=== PATIENT | male | born 1990 | race Caucasian/White ===

== ENCOUNTER 2020-01-11 16:13 | Emergency (ER) | payer SELFPAY ==
[2020-01-11 17:03] VITALS: BP 127/81; PULSE 82; RESP 19; TEMP 36.6; O2SAT 98; BMI 24.4
--- NOTE | 2020-01-11 17:14 | HMH.EDUTC ---
[facility] [place] Disposition Clinical Impression: Exposure to STD Disposition: Home, Self-Care Condition on Discharge: Good Instructions: Chlamydia, Chlamydia: The Silent STD, DI for Chlamydia Additional Instructions: Make sure to follow up in the next 5-7 days for your test results *No sex for at least 7 days to give antibiotics time to clear the infection Return if needed Straight to ER if any life threatening symptoms Follow up with Family doctor if no improvement or any worsening of symptoms Referrals: PCP,No [Primary Care Provider] - As needed Time of Disposition: 17:27 Medical Decision Making - Ben Inquiry Pt receiving controlled substance: No Ben was queried for this patient: No Vital Signs: 01/11/20 17:03 Temperature 97.9 F Temperature Source Oral Pulse Rate [Right Brachial] 82 Respiratory Rate 19 Blood Pressure [Right Arm] 127/81 Blood Pressure Mean [Right Arm] 96 Blood Pressure Source [Right Arm] Automatic Cuff Blood Pressure Position [Right Arm] Sitting 02 Sat by Pulse Oximetry 98 Oxygen Delivery Method Room Air [facility] [place] HPI - General Stated complaint: possible uti Time Seen by Provider: 01/11/20 17:15 Mode of Arrival: Ambulatory Source of Information: Patient Limitations: No Limitations Description of Symptoms (Recalled from Triage Doc. by RN): PATIENT WANTING TO BE TESTED FOR STDs HEENT Symptoms (Recalled from RN notes): No Resp Symptoms (Recalled from RN notes): No Skin Symptoms (Recalled from RN notes): No MS Symptoms (Recalled from RN notes): No Functional Status (Recalled from RN notes): WNL - History of Present Illness Provider Complaint: Patient states that he recently had sexual intercourse multiple times on seperate occasions unprotected with female that called him earlier today and said she had clamydia and recommended that he come in and get tested States that he wants to get tested and go ahead and get treated - Related Data Home Medications Medication Instructions Recorded Confirmed No Known Home Medications 01/11/20 01/11/20 Allergies Allergy/AdvReac Type Severity Reaction Status Date / Time amoxicillin [AMOXICILLIN] Allergy Unknown Verified 02/07/18 21:11 Penicillins [PENICILLINS] Allergy Unknown Verified 02/07/18 21:11 ampicillin Allergy Verified 02/07/18 21:11 - Worker's Comp Is this a Worker's Comp case?: No [facility] History - Hepatitis A Screen Drug use history?: No High risk sexual behaviors?: No History of sexually transmitted infection?: No Currently employed?: No Childcare worker?: No Do you have indoor plumbing?: Yes Do you have electricity?: Yes Attestation statement:: This patient has been screened for Hepatitis A risk factors. I have reviewed the patient's past medical history: Yes Medical History: Denies:: Diabetes Mellitus Type 1, Diabetes Mellitus Type 2, Hypertension Other Surgeries: Yes: Other (Hypospadias correction) - Social History Smoking Status: Never smoker Alcohol Intake: never Occupational Status: other Housing: house ROS Obtained: Yes All systems reviewed & no additional complaints, Yes Systems reviewed as appropriate & no additional complaints - Constitutional Constitutional: Reports system reviewed and no additional complaints, except as docu - Cardiovascular Cardiovascular: Reports system reviewed and no additional complaints, except as docu - Respiratory Respiratory: Yes system reviewed and no additional complaints, except as docu - Gastrointestinal Gastrointestingal: Reports: system reviewed and no additional complaints, except as docu - Allergic/Immunologic Comments: Recently expose to Chlamydia Physical Exam - General General appearance: alert, in no apparent distress - ENT ENT exam: Present: normal exam, normal oropharynx, mucous membranes moist, TM's normal bilaterally, normal external ear exam - Respiratory Respiratory exam: Present: normal lung sounds bilaterally. Absent: respiratory dis
[2020-01-11 17:35] VITALS: BP 127/81; PULSE 82; RESP 19; TEMP 36.6; O2SAT 98
[2020-01-16 08:42] LABS: Neisseria gonorrhoeae, NAA Negative (Negative)
== END 2020-01-11 17:37 | disposition home or self-care (01) ==
PROVIDERS: Emergency Provider Nurse Practitioner
DX: Z20.2 Contact with and (suspected) exposure to infections with a predominantly sexual mode of transmission (principal); Z88.0 Allergy status to penicillin
CPT/HCPCS: 87491; 87591; 99201

== ENCOUNTER 2020-03-29 17:56 | Emergency (ER) | payer OTHER, SELFPAY ==
[2020-03-29 18:00] VITALS: BP 141/91; PULSE 78; RESP 18; TEMP 37; O2SAT 99; BMI 24.4
--- NOTE | 2020-03-29 18:10 | HMH.EDUTC ---
[facility] [place] Disposition Clinical Impression: Exposure to COVID-19 virus Disposition: Home, Self-Care Condition on Discharge: Good Instructions: Preventing the Spread of Coronavirus Discharge Instructions Additional Instructions: self isolate until test results are known to be neg follow up with pcp if symptoms worsen or do not improve increase fluids tylenol or motrin as needed Referrals: PCP,No [Primary Care Provider] - Time of Disposition: 18:12 Medical Decision Making - Ben Inquiry Pt receiving controlled substance: No Vital Signs: 03/29/20 18:00 Temperature 98.6 F Temperature Source Oral Pulse Rate [Right Brachial] 78 Respiratory Rate 18 Blood Pressure [Right Arm] 141/91 H Blood Pressure Mean [Right Arm] 107 Blood Pressure Source [Right Arm] Automatic Cuff Blood Pressure Position [Right Arm] Sitting 02 Sat by Pulse Oximetry 99 Oxygen Delivery Method Room Air Orders (Tests/Meds): ORDERS Category Date Time Status Covid-19 Nasal PCR Sendout [facility] 03/29/20 17:58 Ordered [facility] [place] HPI - General Chief complaint: Urgent Treatment Center Stated complaint: COVID Testing Time Seen by Provider: 03/29/20 18:10 Mode of Arrival: Ambulatory Source of Information: Patient Limitations: No Limitations Description of Symptoms (Recalled from Triage Doc. by RN): PATIENT REQUESTING COVID TEST D/T EXPOSURE; DENIES SYMPTOMS HEENT Symptoms (Recalled from RN notes): No Resp Symptoms (Recalled from RN notes): No Skin Symptoms (Recalled from RN notes): No MS Symptoms (Recalled from RN notes): No Functional Status (Recalled from RN notes): WNL - History of Present Illness Provider Complaint: 29 yr old male presents for covid testing. pt states he was exposed and his work wants him to have test. pt states no symptoms - Related Data Previous Rx's Medication Instructions Recorded Doxycycline Hyclate [Doxycycline 100 mg PO Q12 7 Days #14 cap 01/18/20 100mg Capsule] Allergies Allergy/AdvReac Type Severity Reaction Status Date / Time amoxicillin [AMOXICILLIN] Allergy Unknown Verified 02/07/18 21:11 Penicillins [PENICILLINS] Allergy Unknown Verified 02/07/18 21:11 ampicillin Allergy Verified 02/07/18 21:11 - Worker's Comp Is this a Worker's Comp case?: No [facility] History - Hepatitis A Screen Drug use history?: No High risk sexual behaviors?: No History of sexually transmitted infection?: No Currently employed?: No Childcare worker?: No Do you have indoor plumbing?: Yes Do you have electricity?: Yes Attestation statement:: This patient has been screened for Hepatitis A risk factors. I have reviewed the patient's past medical history: Yes Medical History: Denies:: Diabetes Mellitus Type 1, Diabetes Mellitus Type 2, Hypertension Other Surgeries: Yes: Other (Hypospadias correction) - Social History Smoking Status: Never smoker Alcohol Intake: never Occupational Status: other Housing: house ROS Obtained: Yes Systems reviewed as appropriate & no additional complaints - Constitutional Constitutional: Reports system reviewed and no additional complaints, except as docu, Denies body ache - Eyes Eyes: Reports system reviewed and no additional complaints, except as docu, Denies blurry vision - ENT Ears, Nose, Mouth, and Throat: Reports system reviewed and no additional complaints, except as docu, Denies headache(s) - Cardiovascular Cardiovascular: Reports system reviewed and no additional complaints, except as docu, Denies chest pain at rest - Respiratory Respiratory: Yes system reviewed and no additional complaints, except as docu, No change in phlegm color - Gastrointestinal Gastrointestingal: Reports: system reviewed and no additional complaints, except as docu. Denies: belching, nausea - Genitourinary Male Genitourinary: Reports system reviewed and no additional complaints, except as docu - Musculoskeletal Musculoskeletal: Reports system reviewed and no additional com
[2020-03-29 18:14] VITALS: BP 141/91; PULSE 78; RESP 18; TEMP 37; O2SAT 99
[2020-03-31 10:18] LABS: Covid-19 Nasal PCR Sendout UK Not Detected
== END 2020-03-29 18:15 | disposition home or self-care (01) ==
PROVIDERS: Emergency Provider Nurse Practitioner Family
DX: Z20.828 Contact with and (suspected) exposure to other viral communicable diseases (principal); Z88.0 Allergy status to penicillin
CPT/HCPCS: 99201; U0003

== ENCOUNTER 2020-12-18 18:08 | Emergency (ER) | payer OTHER, SELFPAY ==
[2020-12-18 18:08] VITALS: BP 128/74; PULSE 76; RESP 19; TEMP 36.8; O2SAT 100; BMI 24.4
--- NOTE | 2020-12-18 19:14 | HMH.EDUTC ---
[facility] [place] Clinical Impression: Encounter for laboratory testing for COVID-19 virus Disposition: Home, Self-Care Condition on Discharge: Good Instructions: DI for COVID-19 (Suspected or Confirmed ), Coronavirus Disease 2019, Preventing the Spread of Coronavirus Discharge Instructions Additional Instructions: *Monitor Temp, Over the counter Motrin or Tylenol as directed/as needed Tylenol every 4 hours and Motrin every 6 hours (as long as your family doctor has told you that you can take it) for fever or pain. and straight to ER if unable to lower temp less than 101.0 after medication given Follow up IMMEDIATELY for new or worsening symptoms or no Noticeable improvement over the next 48-72 hours. 911 for difficulty breathing or swallowing You were tested for today for COVID19 your test result should be back in the next 24-48 hours, you may call to the [facility] to see if your test results are back in the next 48 hours [phone] [facility] hours are 9am-9pm You was given a handout with instructions for Self Quarantine and Self isolation for while you wait on test results and what to do if they are positive If you are positive the Health Dept will be contacting you also Make sure to take your Vitamins Vit. C Vit D and Zinc if you can take them Referrals: Provider,Referral, MD [Primary Care Provider] - As needed Time of Disposition: 19:16 Medical Decision Making - Ben Inquiry Pt receiving controlled substance: No Ben was queried for this patient: No Vital Signs: 12/18/20 18:08 Temperature 98.2 F Temperature Source Oral Pulse Rate [Left Radial] 76 Respiratory Rate 19 Blood Pressure [Right Arm] 128/74 Blood Pressure Mean [Right Arm] 92 Blood Pressure Source [Right Arm] Automatic Cuff Blood Pressure Position [Right Arm] Sitting 02 Sat by Pulse Oximetry 100 Oxygen Delivery Method Room Air Orders (Tests/Meds): ORDERS Category Date Time Status Covid-19 Nasal PCR ([facility]) Routine Lab 12/18/20 19:01 Ordered [facility] [place] - General Stated complaint: covid test Time Seen by Provider: 12/18/20 19:14 Mode of Arrival: Ambulatory Source of Information: Patient Limitations: No Limitations Description of Symptoms (Recalled from Triage Doc. 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: No High risk sexual behaviors?: No History of sexually transmitted infection?: No Currently employed?: No Childcare worker?: No Do you have indoor plumbing?: Yes Do you have electricity?: Yes Attestation statement:: This patient has been screened for Hepatitis A risk factors. I have reviewed the patient's past medical history: Yes Medical History: Denies:: Diabetes Mellitus Type 1, Diabetes Mellitus Type 2, Hypertension Other Surgeries: Yes: Other (Hypospadias correction) - Social History Smoking Status: Never smoker Alcohol Intake: never Occupational Status: other Housing: house ROS Obtained: Yes All systems reviewed & no additional complaints, Yes System
[2020-12-18 19:23] VITALS: BP 128/74; PULSE 76; RESP 19; TEMP 36.8; O2SAT 100
== END 2020-12-18 19:25 | disposition home or self-care (01) ==
PROVIDERS: Emergency Provider Nurse Practitioner
DX: Z20.822 Contact with and (suspected) exposure to COVID-19 (principal)
CPT/HCPCS: 99202; G0463; U0003

== ENCOUNTER 2023-12-17 17:53 | Emergency (ER) | payer SELFPAY ==
[2023-12-17 18:00] VITALS: BP 127/76; PULSE 58; RESP 19; TEMP 36.7; O2SAT 100; BMI 25.0
[2023-12-17] MEDS: TET/DIPHTH/PERT-ADULT 0.5ML SYRINGE 0.5 ML IM (18:13)
--- NOTE | 2023-12-17 18:19 | ED_ITS ---
Discharge Plan Disposition Patient Disposition: Home, Self-Care Condition: Good Prescriptions Prescriptions: New doxycycline hyclate 100 mg capsule 100 mg PO BID Qty: 20 0RF mupirocin 2 % ointment 1 applic topical BID 10 Days Qty: 15 0RF No Action doxycycline hyclate 100 MG capsule 100 mg PO Q12 7 Days Qty: 14 0RF Referrals Follow up/Referrals: Provider,Referral, MD [Primary Care Provider] - See instructions Activity Restrictions/Add. Instructions Additional Instructions/Restrictions: clean area twice a day apply cream monitor for s/s of infection return if symptoms worsen or no improvement Clinical Impressions Clinical Impression: Puncture wound of foot Qualifiers: Encounter type: initial encounter Laterality: left Qualified Code(s): S91.332A - Puncture wound without foreign body, left foot, initial encounter Instructions Patient Instructions: DI for Puncture Wound Print Language Print Language: Sammarinese Discharge ED Provider: Vesta ([facility]Jam [facility] [place] General Stated complaint: AO08/10 Stepped on nail LT foot Mode of Arrival: Ambulatory Source of Information: Patient Limitations: No Limitations Time Seen by Provider: 12/17/23 18:20 Description of Symptoms (Recalled from Triage Doc. by RN): PATIENT STATES HE STEPPED ON A KAYA NAIL TODAY, NEEDS TDAP HEENT Symptoms (Recalled from RN notes): No Resp Symptoms (Recalled from RN notes): No Skin Symptoms (Recalled from RN notes): Yes MS Symptoms (Recalled from RN notes): No Functional Status (Recalled from RN notes): WNL History of Present Illness Provider Complaint: 33 yr old male stepped on nail Related Data Previous Rx's ?Medication ?Instructions ?Recorded doxycycline hyclate 100 mg capsule 100 mg PO Q12 7 days #14 caps 01/18/20 doxycycline hyclate 100 mg capsule 100 mg PO BID #20 caps 12/17/23 mupirocin 2 % topical ointment 1 applic topical BID 10 days #15 12/17/23 grams Allergies Allergy/AdvReac Type Severity Reaction Status Date / Time amoxicillin [AMOXICILLIN] Allergy Unknown Verified 02/07/18 21:11 Penicillins [PENICILLINS] Allergy Unknown Verified 02/07/18 21:11 ampicillin Allergy Verified 02/07/18 21:11 Worker's Comp Is this a Worker's Comp case?: No [facility] Disclaimer: The information contained in this section may have been updated after the patient was seen, as this information can be updated by other users. Social History , DORI) Smoking Status: Never smoker second hand exposure: No alcohol intake: never current occupational status: other Travel in the last 8 weeks: None housing: house ROS Obtained: Yes All systems reviewed & no additional complaints except as documented Constitutional Constitutional: Reports system reviewed and no additional complaints, except as documented Eyes Eyes: Reports system reviewed and no additional complaints, except as documented ENT Ears, Nose, Mouth, and Throat: Reports system reviewed and no additional complaints, except as documented Cardiovascular Cardiovascular: Reports system reviewed and no additional complaints, except as documented Respiratory Respiratory: Reports system reviewed and no additional complaints, except as documented Gastrointestinal Gastrointestingal: Reports system reviewed and no additional complaints, except as documented Musculoskeletal Musculoskeletal: Reports system reviewed and no additional complaints, except as documented Integumentary/Breasts Skin/Breast: Reports system reviewed and no additional complaints, except as documented, Reports as per HPI and Reports wounds Neurologic Neurologic: Reports system reviewed and no additional complaints, except as documented Endocrine Endocrine: Reports system reviewed and no additional complaints, except as documented Hematologic/Lymphatic Henatologic/Lymphatic: Reports system reviewed and no additional complaints, except as documented Allergic/Immunologic Allergic/Immunologic: Reports system reviewed and no additional complaints, except as documented Physical Exam General General appearance: alert and in no apparent distress Head Head exam: atraumatic Eye Eye exam: Present normal appearance and PERRL ENT ENT exam: Present normal exam Respiratory Respiratory exam: Present normal lung sounds bilaterally Cardiovascular Cardiovascular exam: Present regular rate and normal rhythm Abdominal Exam Abdominal exam: Present soft Expanded Lower Extremity Exam Left: Bottom foot image: 2 1. puncture wound Neurological Exam Neurological exam: Present alert and oriented X3 Skin Skin exam: Present warm and intact Medical Decision Making Medical Records Medical records reviewed: Yes I reviewed the patient's medical records. Ben Inquiry Pt receiving controlled substance: No Ben was queried for this patient: No Vital Signs: 12/17/23 18:00 Temperature 98.1 F Temperature Source Oral Pulse Rate [Left Brachial] 58 L Respiratory Rate 19 Blood Pressure [Left Arm] 127/76 Blood Pressure Mean [Left Arm] 93 Blood Pressure Source [Left Arm] Automatic Cuff Blood Pressure Position [Left Arm] Sitting 02 Sat by Pulse Oximetry 100 Oxygen Delivery Method Room Air Orders (Tests/Meds): ED MEDICATIONS Generic Name Dose Route Start Last Admin Trade Name Freq PRN Reason Stop Dose Admin Tetanus/Reduced Diphtheria/Acell Pertussis 0.5 ml 12/17/23 18:09 12/17/23 18:13 Tet/Diphth/Pert-Adult 0.5ml Syringe IM 12/17/23 18:10 0.5 ml .ONCE ONE Administration
[2023-12-17 18:25] VITALS: BP 127/76; PULSE 58; RESP 19; TEMP 36.7; O2SAT 100
== END 2023-12-17 18:29 | disposition home or self-care (01) ==
PROVIDERS: Emergency Provider Nurse Practitioner Family
DX: S91.332A Puncture wound without foreign body, left foot, initial encounter (principal); Z23 Encounter for immunization; W45.0XXA Nail entering through skin, initial encounter
CPT/HCPCS: 90471; 90715; 99212; 99214; G0463

== ENCOUNTER 2024-11-03 17:50 | Emergency (ER) | payer SELFPAY ==
[2024-11-03 18:20] VITALS: BP 115/82; PULSE 71; RESP 18; TEMP 36.8; O2SAT 98; BMI 26.4
--- NOTE | 2024-11-03 19:02 | ECG_ITS ---
APPROVED REPORT Exam: Resting ECG HR:57 bpm ECG Measurements Heart Rate 57 AXES MD 177 P 51 QRSd 108 QRS 42 QT 391 T 28 QTc 385 Conclusion Sinus bradycardia Electronically signed by : EL NOLAND, 11/03/2024 22:41:46
[2024-11-03 19:14] LABS: Basophils # 0.1 K/mm3 (0-0.2); Basophils % 0.8 % (0.1-2.0); Eosinophils # 0.2 Kmm3 (0.0-0.4); Eosinophils % 2.9 % (0.1-12.0); Hematocrit 43.4 % (42.0-52.0); Hemoglobin 15.3 g/dL (14.1-18.0); Immature Granulocytes # 0.02 10^3uL; Immature Granulocytes % 0.3 %; Lymphocytes # 1.9 K/mm3 (0.7-4.5); Lymphocytes % 30.9 % (10-50); Mean Corpuscular HGB Conc 35.3 g/dL (31.8-35.4); Mean Corpuscular Hemoglobin 30.8 pg (27.0-31.2); Mean Corpuscular Volume 87.3 fl (80-94); Mean Platelet Volume 9.4 fl (7.4-10.4); Monocytes # 0.6 K/mm3 (0.1-1.0); Monocytes % 10.3 % (1.7-9.3); Neutrophils # 3.4 K/mm3 (1.8-7.8); Neutrophils % 54.8 % (37.0-80.0); Nucleated Red Blood Cells # 0 10^3/uL; Nucleated Red Blood Cells % 0 %; Platelet Count 306 K/mm3 (142-424); Red Blood Count 4.97 M/mm3 (4.60-6.20); Red Cell Distribution Width-SD 38.4 fL; White Blood Count 6.1 K/mm3 (4.8-10.8)
--- NOTE | 2024-11-03 19:18 | ED_ITS ---
Discharge Plan Disposition Patient Disposition: Home, Self-Care Prescriptions Prescriptions: No Action doxycycline hyclate 100 MG capsule 100 mg PO Q12 7 Days Qty: 14 0RF doxycycline hyclate 100 mg capsule 100 mg PO BID Qty: 20 0RF mupirocin 2 % ointment 1 applic topical BID 10 Days Qty: 15 0RF Referrals Follow up/Referrals: Provider,Referral, MD [Primary Care Provider, Medical] - See instructions Activity Restrictions/Add. Instructions Additional Instructions/Restrictions: Be sure to stay plenty hydrated. Drink electrolyte containing fluids. Do not return to work for a couple of days until you are fully back to your baseline. Be sure to rest plenty in the meantime. Call your family doctor to establish care for this visit to the emergency department and schedule follow-up within 48 hours to ensure improvement. If you have any worsening of your condition or any other concerning signs or symptoms, return to the emergency department or your primary care doctor for further evaluation. Clinical Impressions Clinical Impression: Heat exhaustion Stand Alone Forms Stand Alone Forms: Work/School Release Print Language Print Language: [place] Discharge ED Provider: Lebron Gavin General Adult HPI General Chief complaint: Dizziness Stated complaint: dizzy,light headed,headache Time Seen by Provider: 11/03/24 18:57 Mode of Arrival: Ambulatory Source of Information: Patient Description of Symptoms (Recalled from ER Triage Doc. by RN): c/o for 2 days dizziness for the past 2 days, reports was sitting in the truck and it hit him all of sudden and hasnt stopped. reports working out in the heat, staying hydrated and taking breaks. History of Present Illness HPI narrative: Please note that above description of symptoms, in this electronic medical record under categorization of recalled from ER triage doctor by RN are reflective of an initial nursing assessment, however, is not reflective of my full history and physical exam that was personally taken and clarified. Consequentially, this preceding description of symptoms, which may include the patient's categorized chief complaint in the EMR, do not reflect my personal clinical impression, and the ultimate description of history of present illness and patient stated complaints should be deferred to this section of the note. Unless stated otherwise or congruent with this section of the note, additional signs, symptoms, or incongruence should be interpreted as inaccurate with my clinical impression. Related Data Previous Rx's ?Medication ?Instructions ?Recorded doxycycline hyclate 100 mg capsule 100 mg PO Q12 7 day s #14 caps 01/18/20 doxycycline hyclate 100 mg capsule 100 mg PO BID #20 c aps 12/17/23 mupirocin 2 % topical ointment 1 applic topical BID 10 days #15 12/17/23 grams Allergies Allergy/AdvReac Type Severity Reaction Status Date / Time amoxicillin (AMOXICILLIN) Allergy Unknown Verified 02/07/18 21:11 Penicillins (PENICILLINS) Allergy Unknown Verified 02/07/18 21:11 ampicillin Allergy Verified 02/07/18 21:11 [facility] Disclaimer: The information contained in this section may have been updated after the patient was seen, as this information can be updated by other users. Social History , [employer]) Smoking Status: Never smoker second hand exposure: No alcohol intake: never current occupational status: other Travel in the last 8 weeks?: None housing: house Have you lived/traveled outside [place] in past 30 days?: No Contact w/someone who lives/traveled outside [place] past 30 days?: No Exposure to someone with infectious disease in past 14 days?: No Do you have a fever (greater than 100.4 F or 38 C)?: No Have you tested positive for COVID-19?: No Exposed to someone with COVID-19 in past 14 days?: No Do you have a sore throat?: No Do you have a cough?: No Do you have any weakness?: No Do you have any diarrhea?: No Are you experiencing any unusual bleeding?: No Do you have any muscle aches/pain?: No Do you have any abdominal pain?: No Are you experiencing loss of taste or smell?: No ROS Obtained: Yes All systems reviewed & no additional complaints except as documented Physical Exam General General appearance: alert Head Head exam: atraumatic and normocephalic Eye Eye exam: Present normal appearance, PERRL and EOMI Neck Neck exam: Present normal inspection, full ROM and trachea midline Respiratory Respiratory exam: Absent respiratory distress, wheezes, stridor, accessory muscle use or prolonged expiratory phase Cardiovascular Cardiovascular exam: Present other (Pulses equal symmetric in upper and lower extremities) Abdominal Exam Abdominal exam: Present soft; Absent distention, tenderness or pulsatile mass Extremities Exam Extremities exam: Absent edema Neurological Exam Neurological exam: Present alert, oriented X3 and CN II-XII intact; Absent motor sensory deficit Skin Skin exam: Present warm and dry; Absent diaphoresis or erythema Medical Decision Making Medical Records Medical records reviewed: Yes I reviewed the patient's medical records. Screening: Per USPSTF and CDC recommendations, given the prevalence of disease in our region, it is our hospital?s policy to screen for HIV and viral Hepatitis for all patients aged 18 and over and those with ongoing risk factors. Ben Inquiry Pt receiving controlled substance: No Ben was queried for this patient: No Vital Signs: 11/03/24 18:20 11/03/24 19:30 11/03/24 20:00 Temperature 98.3 F Temperature Source Oral Pulse Rate 64 53 L Pulse Rate [Left Radial] 71 Respiratory Rate 18 Blood Pressure 124/85 127/84 Blood Pressure [Right Arm] 115/82 Blood Pressure Mean 95 Blood Pressure Mean [Right Arm] 93 02 Sat by Pulse Oximetry 98 98 100 Oxygen Delivery Method Room Air Lab Data Lab Results 11/03/24 19:00: WBC 6.1, RBC 4.97, Hgb 15.3, Hct 43.4, MCV 87.3, MCH 30.8, MCHC 35.3, RDW 12.0, Plt Count 306, MPV 9.4, Neut % (Auto) 54.8, Lymph % (Auto) 30.9, [place] % (Auto) 10.3 H, Eos % (Auto) 2.9, Baso % (Auto) 0.8, Neut # (Auto) 3.4, Lymph # (Auto) 1.9, [place] # (Auto) 0.6, Eos # (Auto) 0.2, Baso # (Auto) 0.1, Sodium 139, Potassium 4.1, Chloride 98, Carbon Dioxide 30, Anion Gap 15.1 H, BUN 10, Creatinine 0.80, Estimated Creat Clear 164, Estimated GFR 111, Est GFR ( Amer) 135, Glucose 93, Calcium 9.7, Magnesium 2.0, Total Bilirubin 0.5, AST 28, ALT 22, Alkaline Phosphatase 63, Total Protein 8.5 H, Albumin 4.9, G lobulin 3.6 H, Albumin/Globulin Ratio 1.4 11/03/24 19:00 11/03/24 19:00 Orders (Tests/Meds): ED MEDICATIONS Generic Name Dose Route Start Last Admin Trade Name Anthony PRN Reason Stop Dose Admin Sodium Chloride 1,000 mls @ 999 mls/hr 11/03/24 19:13 11/03/24 19:27 Sod Chlor 0.9% 1000ml Bag IV 11/03/24 20:13 999 mls/hr .Q1H1M ONE Administration ORDERS Category Date Time Status CK [Creatine Kinase] Stat Lab 11/03/24 19:00 Received Complete Blood Count Auto Diff Stat Lab 11/03/24 19:00 Completed Comprehensive Metabolic Panel Stat Lab 11/03/24 19:00 Completed HIV Combo Stat Lab 11/03/24 19:00 Received Hepatitis C Ab Qual. W/ RFX Stat Lab 11/03/24 19:00 Received MAG [Magnesium] Stat Lab 11/03/24 19:00 Received Magnesium Stat Lab 11/03/24 19:00 Completed Medical Decision Narrative: 34-year-old male presenting with heat exhaustion. He states he was working out in the hot sun 100+ degree temperatures for the past 2 or 3 days. Started feeling worn out on , got worse on Tuesday as he works through the sun and today he is feeling generally weak, worn out and has no energy. States that he has been trying to hydrate, but urine continues to run dark. States that is not [employer] colored. No change in mental status, confusion, syncopal episodes, pain, muscle cramps, or any other concerns. History was obtained via conversation with patient. On arrival, patient hemodynamically stable, alert, oriented x4, appropriate, GCS 15, moving all extremities spontaneously, pupils equal and reactive to light. Full physical exam performed and significant for well-appearing male no acute distress. Sunburn face, otherwise normal. No respiratory distress, cardiopulmonary exam normal and hemodynamically stable nontachycardic. Grossly neurologically intact. Differential includes heat exhaustion, metabolic abnormality, rhabdomyolysis, among others. Patient placed on continuous cardiac monitoring and continuous pulse ox with initial blood pressure 115/82, heart rate 71, saturation 98% on room air. Independent interpretation of EKG shows sinus bradycardia 57 bpm with MO 177, QRS 108, QTc 385. Normal axis and no acute ischemic change. Patient was given IV fluids for symptomatic management and correction of underlying abnormalities. Workup independently interpreted and significant for nonactionable hematologic workup. On reevaluation, patient still resting comfortably with some improvement, but minimal change from baseline on arrival. Still looks very clinically well. Given patient presentation, workup, history, this most likely represents heat exhaustion. Because patient at baseline without signs or symptoms of clinical decompensation, deemed appropriate for discharge. Results were relayed to patient who voiced understanding and were agreeable to outpatient management and follow up. I discussed my clinical impression with patient and answered all questions. At this time, the evidence for any other entities in the differential is insufficient to warrant any further testing or ED observation. This was explained as well. Advisory was given that persistent or worsening symptoms require further evaluation. I confirmed the understanding of this discussion. Energy Project Manager disclaimer Much of this encounter note is an electronic visual design lead spoken language to printed text. Electronic visual design lead of the spoken language may permit errors. Although I have reviewed the note, some errors may still exist. Critical Care Critical Care Time Critical Care Time: No
[2024-11-03 19:27] LABS: Alanine Aminotransferase 22 U/L (12-78); Albumin Level 4.9 g/dl (3.5-5.0); Albumin/Globulin Ratio 1.4 (1.1-1.8); Alkaline Phosphatase 63 U/L (38-126); Anion Gap 15.1 mEq/L (5-15); Aspartate Amino Transferase 28 U/L (17-59); Bilirubin,Total 0.5 mg/dl (0.2-1.3); Blood Urea Nitrogen 10 mg/dl (9-20); Calcium 9.7 mg/dl (8.4-10.2); Carbon Dioxide 30 mmol/L (22.0-30.0); Chloride 98 mmol/L (98-107); Creatinine Clearance Estimated 164 mL/min (50-200); Estimated Glomerular Filt Rate 111 ml/min (>60); GFR (African American) 135 ML/MIN (>60); Globulin 3.6 g/dL (1.3-3.2); Glucose 93 mg/dl (74-100); Potassium 4.1 mmoL/L (3.5-5.1); Sodium 139 mmol/L (136-145); Total Protein,Serum 8.5 g/dl (6.3-8.2)
[2024-11-03] MEDS: 0.9 % SODIUM CHLORIDE 1000ML 1,000 ML 999 ML IV (19:27)
[2024-11-03 19:30] VITALS: BP 124/85; PULSE 64; O2SAT 98
[2024-11-03 19:51] LABS: Creatine Kinase 126 U/L (55-170)
[2024-11-03 20:00] VITALS: BP 127/84; PULSE 53; O2SAT 100
[2024-11-03 20:11] LABS: HIV Combo NEGATIVE (Negative)
[2024-11-03 20:18] LABS: Hepatitis C Ab Qual. W/ RFX NEGATIVE (Negative)
[2024-11-03 20:22] VITALS: BP 127/84; PULSE 52; RESP 18; TEMP 36.7; O2SAT 100
== END 2024-11-03 20:29 | disposition home or self-care (01) ==
PROVIDERS: Emergency Provider Emergency Medicine
DX: T67.5XXA Heat exhaustion, unspecified, initial encounter (principal); R00.1 Bradycardia, unspecified; R51.9 Headache, unspecified; R42 Dizziness and giddiness
CPT/HCPCS: 80053; 82550; 83735; 85025; 86803; 87389; 93005; 96360; 99284; J7030